=== PATIENT | male | born 1965 | race Two or more races ===

== ENCOUNTER 2018-11-13 06:16 | Day surgery (SDC) | payer OTHER ==
[~2018-11-13] VITALS: Ht 172.7 cm; Wt 86.2 kg
[2018-11-13] VITALS (8 sets, daily range): BP systolic 102–115; BP diastolic 67–78
[2018-11-13] MEDS ORDERED: OMEPRAZOLE20 M2 ORAL (06:55)
[2018-11-13] MEDS ORDERED: NATURAL PSYLL1044 GM PO (06:55)
[2018-11-13] MEDS ORDERED: NORCO 10-325 T1 EACH ORAL (06:55)
[2018-11-13] MEDS ORDERED: LYRICA50 MG ORAL (06:55)
[2018-11-13] MEDS ORDERED: MEN MULTIVITAMIN PO (06:55)
[2018-11-13] MEDS ORDERED: PROZAC10 MG ORAL (06:55)
--- NOTE | 2018-11-13 07:54 | Short Stay Surgery H&P ---
History of Present Illness History of Present Illness Chief Complaint Abdominal pains and GERDs. HPI Jonas Montenegro is a 53 year old male who was admitted on for GERD/ abdominal pains Patient History Allergies: Coded Allergies: No Known Allergies (Unverified , 11/13/18) PAST MEDICAL HISTORY: (1) Arthritis (2) H/O lumbosacral spine surgery Medication History Scheduled Fluoxetine Hcl* (Prozac*), 10 MG ORAL DAILY, (Reported) Omeprazole (Omeprazole), 20 MG ORAL DAILY, (Reported) Pregabalin (Lyrica), 50 MG ORAL BID, (Reported) Psyllium Husk/Aspartame (Natural Psyllium Fiber Powder), 1,044 GM PO BID, ( Reported) [Men Multivitamin ], 1 CAP PO DAILY, (Reported) Scheduled PRN Hydrocodone Bit/Acetaminophen 10-325* ([place] 10-325*), 1 TAB ORAL Q6H PRN for For Pain, (Reported) Review of Systems Cardiovascular: Reports: no symptoms Respiratory: Reports: no symptoms Skeletal: Reports: spinal disc disease, trauma Gastrointestinal: Reports: gastro esophageal reflux disease Genitourinary: Reports: no symptoms Neurologic: Reports: no symptoms Endocrine: Reports: no symptoms Hematologic: Reports: no symptoms Physical Exam Vital Signs Last Vital Signs Date Time Temp Pulse Resp B/P (MAP) Pulse Ox O2 Delivery O2 Flow Rate FiO2 11/13/18 07:01 Room Air 11/13/18 06:44 97.0 59 18 112/72 97 Skin: normal HENT: normal Heart: normal Lungs: normal Abdomen: abnormal Extremities: normal Genitourinary: normal Plan Plan of Care Upper GI endoscopy with biopsy Preop Interventions None. Summary of Findings See the reports. Attestation Are the patient's medical conditions optimized for surgery? Attestation Response: yes Susi Stout MD November 13, 2018 07:54
--- NOTE | 2018-11-13 07:55 | Pre-Procedure Note/Attestation ---
Pre-Procedure Note/Attestation Complete Prior to Procedure Planned Procedure: left Procedure Narrative: Examination of the upper GI tract via endoscopic exam. Indications for Procedure Pre-Operative Diagnosis: R/O Peptic ulcer/gastritis/esophagitis Attestation I attest that I discussed the nature of the procedure; its benefits; risks and complications; and alternatives (and the risks and benefits of such alternatives ), prior to the procedure, with the patient (or the patient's legal medical device sales representative). I attest that, if there was a reasonable possibility of needing a blood transfusion, the patient (or the patient's legal medical device sales representative) was given the [place] [employer] [facility] standardized written summary, pursuant to the Sam Radha Blood Safety Act ([place] Health and Safety Code # 1645, as amended). I attest that I re-evaluated the patient just prior to the surgery and that there has been no change in the patient's H&P, except as documented below: Susi Stout MD November 13, 2018 07:55
[2018-11-13] MEDS ORDERED: LR 1000ml ONE (07:57)
[2018-11-13] MEDS ORDERED: Propofol 200mg/20ml IV ONE (07:57)
--- NOTE | 2018-11-13 08:16 | Endoscopy Procedure Note ---
Endoscopy Procedure Note General Indication for Procedure: Abdominal pains/GERDs/Vomiting Procedures Performed: EGD - Moderate generalized gastritis, biopsy obtained from gastric body. Specimen: yes Pt Tolerated Procedure Well: Yes Anesthesia Anesthesiologist: DR. Claudio Anesthesia: moderate sedation Medications Medication Given: see anesthesia record Inserted Devices Implant(s) used?: No Quality Quality of Bowel Preparation: Excellent Was there any complications?: No GI Core Measures 50 yrs or older w/o bx or poly: Not Applicable 10yrs. F/U not recommended: Not Applicable If not recommended, why?: Med reason:<3 yrs.: System Reason:<3 yrs.: Susi Stout MD November 13, 2018 08:16
--- NOTE | 2018-11-13 08:17 | Discharge Instructions ---
Discharge Instructions Discharge Instructions Follow up with: Visit the docor in office after 2 weeks For Congestive Heart Failure Reminder Report to your physician any weight gain of 5 pounds or more in one week. Susi Stout MD November 13, 2018 08:16
--- NOTE | 2018-11-13 08:46 | Immediate Post-Op Evaluation ---
Immediate Post-Op Evalulation Immediate Post-Op Evalulation Procedure: egd Date of Evaluation: November 13, 2018 Time of Evaluation: 08:46 Nausea: No Vomiting: No Jessica Claudio MD November 13, 2018 08:46
--- NOTE | 2018-11-13 08:46 | Anethesia Preoperative Eval ---
Anesthesia Pre-op PMH/ROS General Date of Evaluation: November 13, 2018 Time of Evaluation: 07:44 ASA Score: ASA 2 Mallampati Score Class I : Soft palate, uvula, fauces, pillars visible Class II: Soft palate, uvula, fauces visible Class III: Soft palate, base of uvula visible Class IV: Only hard plate visible Mallampati Classification: Class II Allergies: Coded Allergies: No Known Allergies (Unverified , 11/13/18) Patient NPO?: Yes Anesthesia Pre-op Phys. Exam Physician Exam Last Vital Signs Date Time Temp Pulse Resp B/P (MAP) Pulse Ox O2 Delivery O2 Flow Rate FiO2 11/13/18 08:35 62 19 102/71 96 Room Air 11/13/18 08:25 3 11/13/18 08:20 97.4 Airway Exam Mallampati Score: Class II Jessica Claudio MD November 13, 2018 08:46
--- NOTE | 2018-11-13 09:54 | 48 Hour Post Anesthesia Eval ---
Post Anesthesia Evaluation Procedure: egd Date of Evaluation: November 13, 2018 Time of Evaluation: 09:54 Nausea: No Vomiting: No Jessica Claudio MD November 13, 2018 09:54
--- NOTE | 2018-11-13 15:45 | Operative Note - Dictated ---
DATE OF OPERATION: 11/13/2018 SURGEON: Susi Stout M.D. PROCEDURE: Esophagogastroduodenoscopy with biopsy. PREOPERATIVE DIAGNOSES: Abdominal pain, regurgitation, history of gastroesophageal reflux, rule out peptic ulcer disease and gastritis. POSTOPERATIVE DIAGNOSIS: Evidence of moderate generalized gastritis. Biopsy taken from the gastric body, otherwise normal study. MEDICATION USED: Per Dr. Claudio, anesthesiologist. INSTRUMENT: GIF Olympus upper GI video endoscope. DESCRIPTION OF PROCEDURE: The patient after arriving in the endoscopy unit, was told about risks and benefits of the procedure, which he accepted and signed informed consent. He was then put on the left lateral decubitus position. After adequate IV sedation, the scope was gently passed through the cricopharyngeal area, was lodged into the upper esophagus and gradually advanced towards gastroesophageal junction. The entire length of the esophagus looked normal. There was no any evidence of inflammatory process, ulceration, stricture, exudate process, etc. GE junction also looked completely normal without evidence of hiatal hernia or Posada's. Subsequently, the scope was advanced into the stomach. Gastric cavity was distended with insufflation of air and gradually the areas of the fundus and the body and the antrum were examined. It revealed that there was evidence of moderate inflammatory process presenting with erythema of the gastric tissue consistent with moderate gastritis endoscopically, but there was no ulcers, tumors, bleeding sites, polyps, etc. One random biopsy from gastric body and retroflexion maneuver was also applied and the area of the gastroesophageal junction was examined in a closer fashion, which revealed no other abnormalities. At this time, the scope was gradually passed through the body and the antrum and pylorus and first and second portion of duodenum were examined. There was no any abnormality or pathology in the duodenal area or second portion of duodenum either. Finally, at this time, the scope was pulled out and procedure was terminated. The patient tolerated the procedure well and left the endoscopy room in a good condition. Susi Stout M.D. DR: JULIANA JOB#: [id number] CC:
--- NOTE | 2018-11-13 17:00 | Pre-op HX & Phy Repo 2 SIG ---
DATE OF ADMISSION: 11/13/2018 HISTORY OF PRESENT ILLNESS: The patient is a 53-year-old gentleman, who is being seen prior to undergoing the procedure for upper GI endoscopy, for which he has been scheduled to receive for evaluation of his gastrointestinal symptoms that he has been complaining subsequent to his work injury. 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 He reported to me that subsequently he was started on multiple medications and currently is suffering from symptoms of intermittent vomiting and feeling of nausea, regurgitation, and severe heartburn that he never had before his injury. He also reported that his injury was on the area of the neck and the lower back area and subsequent to his work, he was started on nonsteroidal anti-inflammatory agents and strong analgesics as such as narcotics and codeine derivatives. He also reported to me that he experiences pain and discomfort over his upper part of the abdomen and that occasionally is quite symptomatic and bothersome. Particularly during the night, he does feel the food coming to his chest. He also does have symptoms of constipation and occasional rectal bleeding, which has been attributed to possible hemorrhoids that they are very minimal amount, mostly over the water and toilet paper. He also reports to me that he has been taking medications, such as antacids and H2 blockers, and currently taking omeprazole, which seems to be somewhat helpful to control his gastroesophageal symptoms. He denies having any difficulty swallowing, however. As I mentioned, when he was injured at job site, he was started on medications such as ibuprofen, naproxen, and similar compounds, after which time he started to have gastrointestinal symptoms and this particularly is mostly significant because of the symptoms of regurgitations. He also reported to me that he was diagnosed to have a possible Helicobacter pylori gastritis, but he was never treated for it. So, finally after his injury, he was not able to work and received multiple treatments including lower back surgery as well. PAST MEDICAL HISTORY: He basically denies having any hypertension or diabetes, thyroid condition, hormonal problems, etc. There is questionable history of arthritis. PAST SURGICAL HISTORY: He has had dorsolumbar surgery for disk condition, which was related to work accident. ALLERGIES: None. CHILDHOOD DISEASES: None significant. FAMILY HISTORY: None significant except the father that has had history of diabetes. HABITS: The applicant denies smoking cigarettes or drinking alcohol and using illicit drugs. MEDICATIONS: List of present medications, Metamucil, omeprazole, cyclobenzaprine, Lyrica, and [place]. He also takes occasionally NSAID medications such as naproxen. REVIEW OF SYSTEMS: Basically history of present illness. He denies having any chest pain, shortness of breath, or urinary problems, but he has pain over his neck in the lower back area where he has been injured at. PHYSICAL EXAMINATION: GENERAL: Reveals alert, well oriented, very pleasant gentleman, does not seem to be in any acute distress. VITAL SIGNS: Blood pressure 112/72, pulse rate 59 per minute, temperature 97.0, respiratory rate is 16, and also O2 saturation 97%. HEENT: Normocephalic. Pupils are equal in size and reactive to light and accommodation. No visible jaundice. Buccal cavity, tongue midline, well hydrated. No ulcers. NECK: Supple. No JVD, thyromegaly, or adenopathy. CHEST: Clear to auscultation and percussion. No rales or rhonchi. HEART: S1 and S2 normal. Regular rhythm. No gallops or murmur. ABDOMEN: Soft and mildly obese, but there is no hepatosplenomegaly or tenderness over the upper part of the abdomen. There is no palpable mass. Bowel sounds are present. EXTREMITIES: Within normal limits. No pretibial edema, cyanosis, or clubbing. CENTRAL NERVOUS SYSTEM: Grossly normal. PRELIMINARY PREOPERATIVE IMPRESSION: 1. Epigastric pain, abdominal pain of uncertain etiology, mostly suggestive, significant suggestion of relationship, significantly to gastroesophageal reflux and regurgitation aggravated by NSAID medication used for the treatment of bodily injury, rule out underlying NSAID-induced gastropathy, peptic ulcer disease, duodenal ulcer, gastritis, etc. 2. History of rectal bleeding mostly secondary to internal hemorrhoids caused by constipation. 3. History of bodily injury related to work accident. RECOMMENDATION: The applicant at this time seems to be quite stable to undergo the procedure of upper GI endoscopy as he is medically stable to receive anesthesia as well. He understands the risks and benefits and will sign the informed consent. Said Eileen Stout DR: EZRA JOB#: [id number] CC:
== END 2018-11-13 09:15 | disposition home or self-care (01) ==
LOC: GAS 06:16
DX: R10.9 Unspecified abdominal pain (principal); R11.10 Vomiting, unspecified; K21.9 Gastro-esophageal reflux disease without esophagitis; K29.50 Unspecified chronic gastritis without bleeding; B96.81 Helicobacter pylori [H. pylori] as the cause of diseases classified elsewhere; R12 Heartburn; Z79.899 Other long term (current) drug therapy; M19.90 Unspecified osteoarthritis, unspecified site
CPT/HCPCS: 43239; J2704; 94003; 94150